=== PATIENT | female | born 1965 ===

== ENCOUNTER 2022-02-16 20:55 | Emergency (ER) | payer BC ==
--- NOTE | 2022-02-16 21:28 | EDPHYS ---
Physician Documentation [facility] Name: Kishor Wagner Age: 57 yrs Sex: Female : 1965 Arrival Date: 02/16/2022 Time: 21:04 Bed Waiting Private MD: ED Physician Dimas Colvin HPI: 02/16 21:40 This 57 yrs old Unknown Female presents to ER via Ambulatory with complaints of jmm Toothache. 21:40 The patient presents with pain. Onset: The symptoms/episode began/occurred gradually. jmm Duration: The symptoms are continuous, and are steadily getting worse. Modifying factors: The symptoms are alleviated by nothing, the symptoms are aggravated by nothing. 57-year-old male with history of diabetes mellitus the presents emerged part with complaints of dental pain beginning earlier today. Patient denies fever or chills.. Historical: - Allergies: 21:30 Doxycycline; tw5 21:30 Neomycin Sulfate; tw5 - Immunization history:: Flu vaccine is up to date. - Social history:: Smoking status: Patient denies any tobacco usage or history of. ROS: 21:40 Constitutional: Negative for fever, chills, and weight loss. jmm 21:40 ENT: Positive for dental pain. 21:40 All other systems are negative. Exam: 21:40 Constitutional: This is a well developed, well nourished patient who is awake, alert, jmm and in no acute distress. Head/Face: atraumatic. Eyes: EOMI, no conjunctival erythema appreciated 21:40 Neck: Trachea midline, Supple Chest/axilla: Normal chest wall appearance and motion. Cardiovascular: Regular rate and rhythm. No edema appreciated Respiratory: Normal respirations, no respiratory distress appreciated Abdomen/GI: Non distended, soft Back: Normal ROM Skin: General appearance color normal MS/ Extremity: Moves all extremities, no obvious deformities appreciated, no edema noted to the lower extremities Neuro: Awake and alert Psych: Behavior is normal, Mood is normal, Patient is cooperative and pleasant 21:40 ENT: Dental exam: gum swelling, that is mild, specifically in the lower right second bicuspid (#29), lower right first molar (#30) and lower right second molar (#31). Vital Signs: 21:27 BP 154 / 79; Pulse 80; Resp 18; Temp 97.2; Pulse Ox 100% on R/A; Weight 101.6 kg; tw5 Height 6 ft. 2 in. (187.96 cm); 21:27 Body Mass Index 28.76 (101.60 kg, 187.96 cm) tw5 MDM: 21:25 Patient medically screened. [facility] 21:25 Data reviewed: vital signs, nurses notes. Counseling: I had a detailed discussion with [facility] the patient and/or guardian regarding: the historical points, exam findings, and any diagnostic results supporting the discharge/admit diagnosis, the need for outpatient follow up, to return to the emergency department if symptoms worsen or persist or if there are any questions or concerns that arise at home. Administered Medications: No medications were administered Disposition: 21:56 Co-signature as Attending Physician, Dimas Colvin MD. rn Disposition Summary: 02/16/22 21:26 Discharge Ordered Location: Home [facility] Condition: Stable [facility] Diagnosis - Dental Pain [facility] Followup: [facility] - With: Private Physician - When: 2 - 3 days - Reason: Recheck today's complaints, Continuance of care, Re-evaluation by your physician Discharge Instructions: - Discharge Summary Sheet [facility] - Dental Pain [facility] Forms: - Medication Reconciliation Form [facility] - Thank You Letter [facility] - Antibiotic Education [facility] - Prescription Opioid Use [facility] Prescriptions: - Amoxicillin 875 mg Oral Tablet - take 1 tablet by ORAL route every 12 hours for 10 days; 20 tablet; Refills: 0, [facility] Product Selection Permitted - GLUCOSE TEST STRIPS - place 1 application by NOT APPLICABLE route as directed As needed; 1 box; [facility] Refills: 0, Product Selection Permitted Signatures: Cristino Walker PA PA jmm Nieto, Roman, MD MD rn Wood, Tiffany tw5
--- NOTE | 2022-02-16 21:34 | ER ---
Nurse's Notes [facility] Name: Kishor Wagner Age: 57 yrs Sex: Female : 1965 Arrival Date: 02/16/2022 Time: 21:04 Bed Waiting Private MD: Diagnosis: Dental Pain Presentation: 02/16 21:27 Chief complaint: Patient states: "I have a toothache.". Coronavirus screen: Vaccine tw5 status: Patient reports receiving the 2nd dose of the covid vaccine. Moderna. Ebola Screen: Patient negative for fever greater than or equal to 101.5 degrees Fahrenheit, and additional compatible Ebola Virus Disease symptoms Patient denies exposure to infectious person. Patient denies travel to an Ebola-affected area in the 21 days before illness onset. Initial Sepsis Screen: Does the patient meet any 2 criteria? No. Patient's initial sepsis screen is negative. Does the patient have a suspected source of infection? No. Patient's initial sepsis screen is negative. Risk Assessment: Do you want to hurt yourself or someone else? Patient reports no desire to harm self or others. Onset of symptoms is unknown. 21:27 Method Of Arrival: Ambulatory tw5 21:27 Acuity: MEGAN 5 tw5 Triage Assessment: 21:30 General: Appears in no apparent distress. Behavior is calm, cooperative, appropriate tw5 for age. Pain: Complains of pain in lower right first molar Pain currently is 2 out of 10 on a pain scale. EENT: Reports pain in mouth. Historical: - Allergies: 21:30 Doxycycline; tw5 21:30 Neomycin Sulfate; tw5 - Immunization history:: Flu vaccine is up to date. - Social history:: Smoking status: Patient denies any tobacco usage or history of. Screenin:33 Abuse screen: Denies threats or abuse. Nutritional screening: No deficits noted. tw5 Tuberculosis screening: No symptoms or risk factors identified. Fall Risk None identified. Assessment: 21:33 General: see triage. tw5 Vital Signs: 21:27 BP 154 / 79; Pulse 80; Resp 18; Temp 97.2; Pulse Ox 100% on R/A; Weight 101.6 kg; tw5 Height 6 ft. 2 in. (187.96 cm); 21:27 Body Mass Index 28.76 (101.60 kg, 187.96 cm) tw5 ED Course: 21:04 Patient arrived in ED. bp1 21:06 Cristino Walker PA is PHCP. mikala 21: Dimas Colvin MD is Attending Physician. [facility] 21: Triage completed. tw5 21:30 Arm band placed on. tw5 21:33 Patient has correct armband on for positive identification. tw5 21:33 No provider procedures requiring assistance completed. Patient did not have IV access tw5 during this emergency room visit. Administered Medications: No medications were administered Medication: : VIS not applicable for this client. tw5 Outcome: 21:26 Discharge ordered by . jmm 21:33 Discharged to home ambulatory. tw5 21:33 Condition: good 21:33 Discharge instructions given to patient, Instructed on discharge instructions, follow up and referral plans. medication usage, Demonstrated understanding of instructions, follow-up care, medications, Prescriptions given X 2. 21:34 Patient left the ED. tw5 Signatures: Cristino Walker PA PA Claudia Almanza bp1 Princess Kapadia tw5
[2022-02-16 21:39] VITALS: BP 154/79; TEMP 97.2; O2SAT 100
== END 2022-02-16 21:34 | disposition home or self-care (01) ==
LOC: ER 20:55
DX: K08.89 Other specified disorders of teeth and supporting structures (principal); Z88.1 Allergy status to other antibiotic agents; Z88.8 Allergy status to other drugs, medicaments and biological substances
CPT/HCPCS: 99282